=== PATIENT | female | born 1930 | race Caucasian/White ===

== ENCOUNTER 2016-11-28 11:27 | Emergency (ER) | payer OTHER, BC ==
[~2016-11-28] VITALS: Ht 152.4 cm; Wt 59.0 kg
[~2016-11-28 11:27] MED LIST: ASPIR 8181 MG PO
[2016-11-28] MEDS ORDERED: PRIMIDONE50 MG PO (11:58)
[2016-11-28] MEDS ORDERED: LOPRESSOR100 M1 PO (11:58)
[2016-11-28] MEDS ORDERED: REMERON15 MG PO (11:59)
[2016-11-28] MEDS ORDERED: NIACIN500 MG PO (11:59)
[2016-11-28] MEDS ORDERED: WELCHOL3.75 GM PO (11:59)
[2016-11-28] MEDS ORDERED: EVISTA PO (11:59)
[2016-11-28] MEDS ORDERED: FISH OIL 1,001000 M2 PO (12:00)
[2016-11-28] MEDS ORDERED: FLOMAX0.4 MG PO (12:00)
[2016-11-28] MEDS ORDERED: CENTRUM SILVER1 EAC5 PO (12:00)
[2016-11-28] MEDS ORDERED: CALTRATE 600 +1 EAC1 PO (12:02)
[2016-11-28] MEDS ORDERED: VITAMIN D3400 UNIT PO (12:02)
[2016-11-28] MEDS ORDERED: MOBIC15 MG PO (14:58)
[2016-11-28 15:05] VITALS: BP 122/65
== END 2016-11-28 15:06 | disposition home or self-care (01) ==
LOC: ER 11:27
DX: M25.562 Pain in left knee (principal); Z90.89 Acquired absence of other organs

== ENCOUNTER → 2017-07-14 | Outpatient (CLI) | payer OTHER, BC ==
[~2017-07-14] MED LIST changes: +CALTRATE 600 +1 EAC1 PO; +CENTRUM SILVER1 EAC5 PO; +EVISTA PO; +FISH OIL 1,001000 M2 PO; +FLOMAX0.4 MG PO; +LOPRESSOR100 M1 PO; +MOBIC15 MG PO; +NIACIN500 MG PO; +PRIMIDONE50 MG PO; +REMERON15 MG PO; +VITAMIN D3400 UNIT PO; +WELCHOL3.75 GM PO
== END ==
LOC: RAD 01:04
DX: Z12.31 Encounter for screening mammogram for malignant neoplasm of breast (principal)

== ENCOUNTER → 2017-07-19 | Outpatient (CLI) | payer OTHER, BC | LOC: NUC 09:07 | DX: M81.0 Age-related osteoporosis without current pathological fracture (principal); N91.2 Amenorrhea, unspecified; Z78.0 Asymptomatic menopausal state ==